=== PATIENT | male | born 2000 | race Caucasian/White ===

== ENCOUNTER 2025-06-05 16:36 | Emergency (ER) | payer OTHER, SELFPAY ==
--- OUTSIDE RECORDS SUMMARY | 2020-06-16 08:00 | XMS_ITS | Encounter Summary ---
Author Organization [facility] Healthcare Address [address] [place] [address] Care Team Providers Care Geological Engineering Teacher Name Role Phone Savi Ayala MD Primary Care Provider [phone] Encounter Details Date Type Department Care Team (Late st Contact Info) Description 06/16/2020 8:00 AM CDT Hospital Encounter [facility] Operating Room [address] [place] [address] Madi Harrington MD [address] [place] [address] Testicular pain, right Social History Tobacco Use Types Packs/Day Years Used Date Smoking Tobacco: Never Passive Smoke Exposure: Never Smokeless Tobacco: Never AUDIT-C Answer Date Recorded Q1: How often do you have a drink containing alc ohol? Monthly or less 02/15/2024 Q2: How many drinks containi ng alcohol do you have on a typical day when you are drinking? 1 or 2 02/15/2024 Q3: How often do you have si x or more drinks on one occasion? 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 Monthly or less 02/15/2024 9:07 AM THADT Aman Houser MD Q2: How many drinks containing alcohol do you have on a typical day when you are drinking? 1 or 2 02/15/2024 9:07 AM THADT Rene Houser MD Q3: How often do you have six or more drinks on one occasion? Never 02/15/2024 9:07 AM THADT Aman Houser MD documented as of this encounter Plan of Treatment Not on file documented as of this encounter Procedures Procedure Name Priority Date/Time Associated Diagnosis Comments US SCROTUM W COMPLETE DOPPLER (C) Schedule Routine, Read Routine (OP Routine) 04/25/2022 3:37 PM CDT Testicular pain, right documented in this encounter Results * US Scrotum W Complete Doppler (C) (04/25/2022 3:37 PM CDT) Anatomical Region Laterality Modality Testis N/A Ultrasound 04/28/2022 11:1 0 AM CDT Narrative 04/28/2022 11:15 AM CDT EXAM DESCRIPTION: US SCROTUM W COMPLETE DOPPLER (C) REASON FOR STUDY: RIGHT TESTICTULAR PAIN Right testicular pain intermittent x 2 years. TECHNIQUE: Gomez scale imaging of the scrotum and testes with selected color Doppler and spectral analysis. COMPARISON: None FINDINGS: RIGHT: TESTICLE: The right testicle measures 4.5 x 2.0 x 2.3 cm. The right testicle is normal in echotexture and contour with no mass. Arterial and venous flow seen. EPIDIDYMIS: The epididymis is normal in size and appearance. HYDROCELE OR VARICOCELE: Small right varicocele. HERNIA OR EXTRA-TESTICULAR MASS: There is no evidence of extratesticular mass. OTHER: No other significant finding. LEFT: TESTICLE: The left testicle measures 4.0 x 2.2 x 2.7 cm. The left testicle is normal in echotexture and contour with no mass. Arterial and venous flow seen. EPIDIDYMIS: The epididymis is normal in size and appearance. HYDROCELE OR VARICOCELE: There is no evidence of significant hydrocele or varicocele. HERNIA OR EXTRA-TESTICULAR MASS: There is no evidence of extratesticular mass. OTHER: No other significant finding. IMPRESSION: 1. Right varicocele. CT of the abdomen and pelvis with contrast may be performed for further evaluation. THIS IS AN ELECTRONICALLY VERIFIED FINAL REPORT 04/28/2022 11:15 AM - Electronically signed by Maynor Reed M.D. AG: DESIREE Report ID: [id number] Reading Location: [place] [address] Procedure Note Maynor Reed MD - 04/28/2022 EXAM DESCRIPTION: US SCROTUM W COMPLETE DOPPLER (C) REASON FOR STUDY: RIGHT TESTICTULAR PAIN Right testicular pain intermittent x 2 years. TECHNIQUE: Gomez scale imaging of the scrotum and testes with selectedcolor Doppler and spectral analysis. COMPARISON: None FINDINGS: RIGHT: TESTICLE: The right testicle measures 4.5 x 2.0 x 2.3 cm. The right testicle is normal in echotexture and contour with no mass. Arterial and venous flow seen. EPIDIDYMIS: The epididymis is normal in size and appearance. HYDROCELE OR VARICOCELE: Small right varicocele. HERNIA OR EXTRA-TESTICULAR MASS: There is no evidence of extratesticular mass. OTHER: No other significant finding. LEFT: TESTICLE: The left testicle measures 4.0 x 2.2 x 2.7 cm. The lefttesticle is normal in echotexture and contour with no mass. Arterial and venousflow seen. EPIDIDYMIS: The epididymis is normal in size and appearance. HYDROCELE OR VARICOCELE: There is no evidence of significant hydrocele or varicocele. HERNIA OR EXTRA-TESTICULAR MASS: There is no evidence of extratesticular mass. OTHER: No other significant finding. IMPRESSION: 1. Right varicocele. CT of the abdomen and pelvis with contrast may be performed for further evaluation. THIS IS AN ELECTRONICALLY VERIFIED FINAL REPORT 04/28/2022 11:15 AM - Electronically signed by Maynor Reed M.D. AG: DESIREE Report ID: [id number] Reading Location: [place] [address] [facility] Nissa Franz MD [facility] PROCEDURES Final Result documented in this encounter Visit Diagnoses Diagnosis Testicular pain, right Unspecified disorder of male genital organs documented in this encounter Admitting Diagnoses Diagnosis Eosinophilic esophagitis documented in this encounter Historical Medications * This list may reflect changes made after this encounter. acetaminophen-cod eine (TYLENOL with CODEINE #3) 300-30 mg per tablet TK 1 T PO Q 6 H PRN PO 03/31/2020 06/02/2021 ibuprofen (ADVIL,MOTRIN) 600 mg tablet 03/31/2020 06/02/2021 chlorhexidine (PERIDEX) 0.12 % solution SWISH AND SPIT 10-15 ML PO BID FOR 7 DAYS. 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
[2025-06-05 16:41] VITALS: BP 139/66; PULSE 54; RESP 16; TEMP 37.1; O2SAT 100
--- OUTSIDE RECORDS SUMMARY | 2025-06-05 17:31 | XMS_ITS | Encounter Summary ---
Author Organization [facility] Healthcare Address [address] [place] [address] Care Team Providers Care Manager Real Estate Name Role Phone Alison Shelley MD Unavailable [phone] Aman Houser MD Primary Care Provider Encounter Details Date Type Department Care Team (Latest Contact Info) Description 05/23/2025 Results Follow-Up [facility] Primary Care at [facility] - [address] [place] [id number] Fidelina Mejia, SHELLACKER [address] [address] Thyroid Function [place], CBC with auto differential, Comprehensive metabolic panel, Additional followed-up results: 2 Social History Tobacco Use Types Packs/Day Years [...] on file 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
--- OUTSIDE RECORDS SUMMARY | 2025-06-05 17:31 | XMS_ITS | Clinical Summary ---
Author Organization [facility] [employer] Address [address] [place] [address] Care Team Providers Care Stock Blender Name Role Phone Savi Ayala MD Primary Care Provider [phone] Source Comments [facility],non-owned Affiliates and Associated Physician Practices is amultiple site organization consisting of ambulatory clinics and hospital sitesin [place], [place], [place] and [place]. This disclosure is being madepursuant to the Care Everywhere program and may not contain all information available regarding this patient. Last updated 18.[facility] [employer] Allergies Active Allergy Reactions Criticality Noted Date Comments Penicillins Urticaria Medium 07/22/2016 Suprax Urticaria Medium 07/22/2016 Medications * Be aware that medications may not be up to date on this document. Alwaysverify current medications with the patient. 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 Gender Identity Not on file Sexual Orientation Not on file Last Filed Vital Signs Vital Sign Reading Time Taken Comments Blood Pressure 128/72 02/13/2019 12:04 PM CDT Pulse 79 02/13/2019 12:04 PM CDT Temperature 36.7 C (98.1 F) 02/13/2019 12:04 PM CDT Respiratory Rate 16 02/13/2019 12:04 PM CDT Oxygen Saturation 98% 02/13/2019 12:04 PM CDT Inhaled Oxygen Concentration - - Weight 77.6 kg (171 lb) 02/13/2019 12:04 PM CDT Height 186.7 cm (6' 1.5) 02/13/2019 12:04 PM CD T Body Mass Index 22.25 02/13/2019 12:04 PM CDT Plan of Treatment Health Maintenance Due Date Last Done Comments HIV SCREENING 2017 HPV VACCINE (1 - Male 3-dose series) 2017 MENINGOCOCCAL (Group B) VACC INE SHARED DECISION-MAKING (1 of 2 - Standard) 2018 HEPATITIS C SCREENING 03/24/2020 DTAP/TDAP/TD VACCINES (1 - Tdap) 2021 HEPATITIS B VACCINE (1 of 3 - 19+ 3-dose series) 2021 COVID-19 VACCINE (1 - 2023-2 5 season) 2024 DEPRESSION SCREENING 10/09/2024 INFLUENZA VACCINE (#1) 2025 ZOSTER VACCINE (1 of 2) 2052 HIB VACCINE Aged Out No longer eligi ble based on patient's age to complete this topic MENINGOCOCCAL GROUPS A/C/Y/W VACCINE Aged Out No longer eligible b ased on patient's age to complete this topic PNEUMOCOCCAL VACCINE Aged Out No long er eligible based on patient's age to complete this topic Insurance [facility] Care Teams Stock Blender Relationship Specialty Start Date End Date Savi Ayala MD [address] [place] [id number] [facility] - General 02/14/12
--- OUTSIDE RECORDS SUMMARY | 2025-06-05 17:31 | XMS_ITS | Clinical Summary ---
Author Organization [facility] Address [address] [place] [address] Care Team Providers Care Engraver Hand Soft Metals Name Role Phone Alison Shelley MD Unavailable [phone] Aman Houser MD Primary Care Provider Allergies Active Allergy Reactions Criticality Noted Date Comments Cefixime Hives Medium 07/22/2016 Penicillins Hives Medium Medications sildenafiL, pulm.hypertension , (REVATIO) 20 mg tablet Take 1 tablet (20 mg total) by mouth as needed (ED) Take 1 tablets by mouth as needed (take on empty stomach) 30 tablet 11 4 Active lansoprazole (PREVACID) 30 mg capsuleIndication s:Eosinophilic esophagitis TAKE 1 CAPSULE(30 MG) BY MOUTH DAILY 30 capsule 5 4 Active budesonide-formot Sophia (Breyna) 160-4.5 mcg/actuation inhaler Inhale 2 puffs 2 (two) times a day Rinse mouth with water after use. Do not swallow. 3 each 4 5 Active escitalopram (LEXAPRO) 10 mg tabletIndications :Mild depression Take 1 tablet (10 mg total) by mouth daily 90 tablet 4 5 Active albuterol (PROAIR RESPICLICK) 90 mcg/actuation inhalerIndication s:Mild persistent asthma without complication Inhale 2 puffs every 6 (six) hours as needed for wheezing 1 each 11 5 Active Active Problems Problem Noted Date Diagnosed Date Attention deficit hyperactivity disorder (ADHD) 04/10/2024 Assessment & Plan (04/10/2024 1:09 PM CDT): Stable, Not currently on medications Prior outside medical rec reviewed -Continue utilizing IEP for scholastic task. Will supply letter for accommodations. Mild persistent asthma without complication 06/2024 Assessment & Plan (02/27/2025 9:17 AM CDT): Controlled, continue SMART therapy with Breyna and Albuterol prn Assessment & Plan (02/15/2024 9:04 AM CDT): Mild, intermittent He uses Albuterol, Dulera prn only Mild depression 02/15/2024 Assessment & Plan (02/27/2025 9:18 AM CDT): Having increased stress and symptoms Increase Lexapro to 10mg Assessment & Plan (02/15/2024 9:09 AM CDT): Well controlled currently Previously responded to Lexapro but had SE. Would consider low dose if recurs External hemorrhoid 02/15/2024 Assessment & Plan (02/15/2024 9:12 AM CDT): Mild, recurrent Discussed dietary modifications He is controlled with OTC topical Eosinophilic esophagitis 09/13/2018 Overview (09/13/2018): Added automatically from request for surgery [id number] Assessment & Plan (02/27/2025 9:19 AM CDT): Controlled, continue Prevacid Assessment & Plan (02/15/2024 9:01 AM CDT): Chronic, controlled on PPI Esophageal dysphagia 08/24/2018 Overview (08/24/2018): Added automatically from request for surgery [id number] Resolved Problems Problem Noted Date Diagnosed Date Resolved Date Closed fracture of forearm 02/12/2013 0 02/15/2024 Encounters Date Type Department Care Team Description 05/23/2025 Results Follow-Up [facility] - [address] [place] [phone] Fidelina Mejia, CONSTRUCTION SAFETY MANAGER Thyroid Function [place], CBC with auto differential, Comprehensive metabolic panel, Additional followed-up results: 2 05/22/2025 9:30 AM CDT Lab [address] [phone] Preventative health care 05/22/2025 9:00 AM CDT Office Visit [facility] at [facility] - [address] [place] [phone] Fidelina Mejia, CONSTRUCTION SAFETY MANAGER Axillary mass, right (Primary Dx); Preventative health care 05/08/2025 2:15 PM CDT Office Visit [facility] Care at [address] [phone] Suri Ho, CONSTRUCTION SAFETY MANAGER Mass of right axilla (Primary Dx) from Last 3 Months Immunizations Immunization Administration Dates Next Due DTaP 5 Pertussis 04/03/2007, 3,2002,07/30,2002 HPV, Quadrivalent 06/05/2013 HPV9 05/16/2016 Hep A, Pediatric 04/03/2007,09/13/2005 Hep B, Adolescent or Pediatric 2002,2001,2002 Hib (PRP-T) 09/09/2003, 3,2002,05/30 IPV 04/03/2007, 3,2002,05/30 Influenza, Live, Intranasal, Quadrivalent 07/29/2015 Influenza, Quadrivalent, Marilynn l Culture-based MDCK, Preservative Free, Antibiotic Free, Intramuscular 08/21/2023,07/23/2018 Influenza, Quadrivalent, Spl it, Preservative Free, Intramuscular 09/02/2022,08/03/2021,08/24/2020,07/02,09/19/2016 Influenza, Trivalent, Cell Culture-based MDCK, Preservative Free, Antibiotic Free, Intramuscular 09/02/2024 Influenza, Trivalent, IM (MDV) 10/08/2013 MMR 04/03/2007,09/09/2003 Meningococcal B, Recombinant (Trumenba) 02/21/2020 Meningococcal B, unspecified 07/02/2019 Meningococcal Conjugate (Menveo) 06/05/2013 Meningococcal MCV4P (Menactra) 07/04/2019 Pfizer SARS-CoV-2 Monovalent Vaccination (12+ Yrs) PURPLE 02/05/2021,01/08/2021 Pneumococcal Conjugate PCV 13 04/22/2003 ,2002,2002,05/30 Tdap 02/15/2024,06/05/2013 Varicella 04/03/2007,04/22/2003 Surgical History Surgery Date Site/Laterality Comments TYMPANOSTOMY TUBE PLACEMENT UPPER GASTROINTESTINAL ENDOSCOPY Medical History Medical History Date Comments ADHD (attention deficit hype ractivity disorder) Dysphagia Fracture(arm) Delayed emergence from anesthesia(slow to emerge with ketamine used to reduce Forearm fracture) Esophageal dysphagia 08/24/2018 Added autom atically from request for surgery [id number] Eosinophilic esophagitis 09/13/2018 Added a utomatically from request for surgery [id number] Closed fracture of forearm 02/12/2013 Covid-19 Pfizer 01/08/2021, 02/05/2021 Asthma January2021 Family History Medical History Relation Name Comments Hypertension Father Breast cancer Mother Citlaly tracey Bronchospasm after GA and required intubation Mother Citlaly tracey Cancer Mother Citlaly tracey Depression Mother Citlaly tracey Celiac disease Neg Hx Crohn's disease Neg Hx Irritable bowel syndrome Neg Hx Relation Name Status Comments Father Mother Citlaly tracey Social History Tobacco Use Types Packs/Day Years Used Date Smoking Tobacco: Never Passive Smoke Exposure: Never Smokeless Tobacco: Never Tobacco Cessation:Counseling Given: No AUDIT-C Answer Date Recorded Q1: How often [...] on file Legal Sex Male 4:01 AM PROSTHETICS ASSISTANT Gender Identity Male 06/03/2024 1:46 PM CDT Sexual Orientation Choose not to disclose 2023 1:46 PM CDT Obstetrics History Last Filed Vital Signs Vital Sign Reading Time Taken Comments Blood Pressure 110/72 05/22/2025 8:47 AM CDT Pulse 56 05/22/2025 8:47 AM CDT Temperature 36.8 C (98.2 F) 05/22/2025 8:47 AM CDT Respiratory Rate 18 05/22/2025 8:47 AM CDT Oxygen Saturation 99% 05/22/2025 8:47 AM CDT Inhaled Oxygen Concentration - - Weight 73.9 kg (163 lb) 05/22/2025 8:47 AM CDT Height 182.9 cm (6') 05/22/2025 8:47 AM CDT Body Mass Index 22.11 05/22/2025 8:47 AM CDT Plan of Treatment Health Maintenance Due Date Last Done Comments Pneumococcal vaccine <65 (1 of 1 - PPSV23, PCV20, or PCV21) 2008 04/22/2003, 2002, 2002, Additional history exists Influenza Vaccine (#1) 2025 , 08/21/2023, 09/02/2022, Additional history exists Depression Screening 02/27/2026 02/27/2025, 04/10/2024, 02/15/2024 Regular Well Visit/Exam 18-64 02/27/2026 02/27/2025, 02/15/2024 DTaP/Tdap/Td Vaccine (8 - Td or Tdap) 02/14/2034 02/15/2024, 06/05/2013, 04/03/2007, Additional history exists Hepatitis B Screening Completed 2002 , 2002, 2002 Varicella Vaccines Completed 04/03/2007, 04/22/2003 HPV Vaccines Completed 05/16/2016, 06/05/2013 Meningococcal B Vaccine Discontinued 02/21/2020, 07/02 Covid-19 Vaccine Completed 09/02/2024, , 07/15/2022, Additional history exists Hepatitis C Screening Discontinued Procedures Procedure Name Priority Date/Time Associated Diagnosis Comments EGFR Routine 05/22/2025 9:21 AM CDT Preventative health care DIFFERENTIAL AUTO Routine 05/22/2025 9:2 1 AM CDT Preventative health care COMPREHENSIVE METABOLIC PANEL Routine 05/22/2025 9:21 AM CDT Preventative health care CBC WITH AUTO DIFFERENTIAL Routine 05/22/2025 9:21 AM CDT Preventative health care THYROID FUNCTION CASCADE Routine 05/22/2025 9:21 AM CDT Preventative health care from Last 3 Months Results * eGFR (05/22/2025 9:21 AM CDT) eGFR >90 >=60 mL/min/1. 73 m2 Comment: Interpretive Data Reference Interval Normal >/= 90 mL/min/1.73m2 Mildly decreased* 60 - 89 mL/min/1.73m2 Mildly to moderately decreased 45 - 59 mL/min/1.73m2 Moderately to severely decreased 30 - 44 mL/min/1.73m2 Severely decreased 15 - 29 mL/min/1.73m2 Kidney Failure < 15 mL/min/1.73m2 *Relative to young adult level Estimated glomerular filtration rate is determined by the 2020 CKD-EPI equation recommended by the National Kidney Foundation (A Unifying Approach to GFR Estimation: Recommendations of the NKF-ASK Task Force on Reassessing the Inclusion of Race in Diagnosing Kidney Disease, JASN 2020). The CKD-EPI equation should not be used for patients with unstable renal function and has not been validated in children and those over 70. Current interpretive data was last reviewed 2021. Testing performed by: [facility], [facility] [address], [place] [address] Blood 05/22/2025 9:21 AM CDT 05/22/2025 9:21 AM CDT Fidelina Mejia NP LAB BLOOD ORDERABLES Final R esult [facility] [address] [place] [address] * Differential, auto (05/22/2025 9:21 AM CDT) Neutrophil abs 1.69 1.50 - 6.50 K/cumm Comment:Testing performed by : [facility], [facility] [place] [place] [address] Imm gran abs 0.00 0.00 - 0.10 K/cumm [facility] Comment:Testing performed by : [facility] [place] [address] Lymphocyte abs 2.06 0.80 - 3.30 K/cumm CERNER Comment:Testing performed by : [facility], [facility] [place] [address] Monocyte abs 0.44 0.20 - 0.80 K/cumm CERNER Comment:Testing performed by : [facility], [facility] [place] [address] Eosinophil abs 0.36 0.00 - 0.50 K/cumm CERNER Comment:Testing performed by : [facility] [place] [address] Basophil abs 0.03 0.00 - 0.10 K/cumm CERNER Comment:Testing performed by : [facility], [address] [place], [place] [address] [place] [address] Neutrophil pct 36.8 % CERNER Comment: Interpretive Data Percent cell count reference ranges are not reported, since discordance with absolute values may lead to misinterpretation of CBC data. Current Interpretive Data was last revised on 2018. Testing performed by: [facility], [facility] [place] [address] Imm gran pct 0.0 % CERNER Comment: Interpretive Data Percent cell count reference ranges are not reported, since discordance with absolute values may lead to misinterpretation of CBC data. Current Interpretive Data was last revised on 2018. Testing performed by: [facility], [address] [address] Lymphocyte pct 45.0 % [facility] Comment: Interpretive Data Percent cell count reference ranges are not reported, since discordance with absolute values may lead to misinterpretation of CBC data. Current Interpretive Data was last revised on 2018. Testing performed by: [facility], [address] [address] Monocyte pct 9.6 % [facility] Comment: Interpretive Data Percent cell count reference ranges are not reported, since discordance with absolute values may lead to misinterpretation of CBC data. Current Interpretive Data was last revised on 2018. Testing performed by: [facility], [address] [address] Eosinophil pct 7.9 % [facility] Comment: Interpretive Data Percent cell count reference ranges are not reported, since discordance with absolute values may lead to misinterpretation of CBC data. Current Interpretive Data was last revised on 2018. Testing performed by: [facility], [address] [address] Basophil pct 0.7 % [facility] Comment: Interpretive Data Percent cell count reference ranges are not reported, since discordance with absolute values may lead to misinterpretation of CBC data. Current Interpretive Data was last revised on 2018. Testing performed [facility]: [facility] [address], [place] [address] Blood 05/22/2025 9:21 AM CDT 05/22/2025 9:21 AM CDT us Fidelina Mejia CONSTRUCTION SAFETY MANAGER LAB BLOOD ORDERABLES Final R esult [facility] [address] [place] [address] * Thyroid Function [place] (05/22/2025 9:21 AM CDT) TSH 0.80 0.30 - 4.20 mcIUnit/mL Comment:Testing performed [facility] : [facility] [address], [place] [address] Blood 05/22/2025 9:21 AM CDT 05/22/2025 9:21 AM CDT us Fidelina Mejia CONSTRUCTION SAFETY MANAGER LAB BLOOD ORDERABLES Final R esult [facility] [address] [place] [address] * CBC with auto differential (05/22/2025 9:21 AM CDT) WBC 4.58 3.80 - 9.90 K/cumm Comment:Testing performed [facility] : [facility] [address], [place] [address] Hgb 14.3 13.0 - 17.5 g/dL CERNER CH Comment:Testing performed [facility] : [facility], [place] [address] Hct 42.2 38.9 - 50.3 % CERNER CH Comment:Testing performed by : [facility] [address], [place] [address] Plt 189 150 - 400 K/cumm CERNER CH Comment:Testing performed by : [facility] [address], [place] [address] MPV 10.6 9.1 - 12.3 fL CERN[facility] CH Comment:Testing performed by : [facility] [address], [place] [address] RBC 4.85 4.30 - 5.80 M/cumm C[facility] CH Comment:Testing performed by : [facility], [place] [address] MCV 87.0 81.3 - 96.4 fL CERNER CH Comment:Testing performed by : [facility], [place] [address] MCH 29.5 27.1 - 33.3 pg CERNER CH Comment:Testing performed by : [facility], [place] [address] MCHC 33.9 32.3 - 35.7 g/dL CERNER CH Comment:Testing performed by : [facility], [place] [address] RDW CV 12.3 11.1 - 14.9 % CERNER CH Comment:Testing performed by : [facility] [place] [address] RDW SD 39.1 35.7 - 48.1 fL CERNER CH Comment:Testing performed by : [facility], [place] [facility]31 NRBC abs 0.00 0.00 - 0.01 K/cumm CERNER CH Comment:Testing performed [facility] : [facility] [place] [address] Blood 05/22/2025 9:21 AM CDT 05/22/2025 9:21 AM CDT Fidelina Mejia NP LAB BLOOD ORDERABLES Final R esult [facility] [address] Department [place] [address] * Comprehensive metabolic panel (05/22/2025 9:21 AM CDT) Sodium 138 135 - 145 mmol/L Comment:Testing performed by : [facility] [place] [id number] Potassium, pl 4.1 3.3 - 4.9 mmol/L CERNER CH Comment:Testing performed [facility] : [facility] [place] [facility]31 Chloride 102 97 - 110 mmol/L CERNER CH Comment:Testing performed by : [facility], [place] [facility]31 CO2 24 22 - 32 mmol/L CERN[facility] CH Comment:Testing performed [facility] : [facility] [place] [facility] Anion gap 12 2 - 15 mmol/L CERN[facility] CH Comment:Testing performed [facility] : [facility] [place] [address] BUN 14 6 - 25 mg/dL CERNER CH Comment:Testing performed by : [facility] [place], [facility]31 Creatinine 1.09 0.80 - 1.30 mg/dL CERNER CH Comment:Testing performed [facility] : [facility] [place] [address] Glucose 95 70 - 199 mg/dL CERNER CH Comment: Interpretive Data Fasting glucose >/= 126 mg/dl is diagnostic for diabetes. Fasting is defined as no caloric intake for at least 8 hours. Fasting glucose between 100 mg/dl to 125 mg/dl is diagnostic of prediabetes. In a patient with classic symptoms of hyperglycemia or hyperglycemic crisis, a random glucose >/= 200 mg/dl is diagnostic for diabetes. In the absence of unequivocal hyperglycemia, results should be confirmed by repeat testing. The classification and Diagnosis of Diabetes Diabetes Care 2021; 46: S19-S40. Current interpretive data was last revised 2022. Testing performed [facility]: [facility], [place] [address] Calcium 9.6 8.5 - 10.3 mg/dL CERNER CH Comment:Testing performed by : [facility] [address] [place] [address] Bilirubin, total 0.3 0.1 - 1.2 mg/dL CERNER CH Comment:Testing performed by : [facility], [place] [address] Protein, pl 7.6 6.5 - 8.5 g/dL CERNER CH Comment:Testing performed by : [facility], [place] [address] Albumin 4.7 3.5 - 5.0 g/dL CERNER CH Comment:Testing performed by : [facility] [address] [place] [address] Alk phos 89 40 - 130 Units/L CERNER CH Comment:Testing performed by : [facility] [address], [place] [address] ALT 21 7 - 55 Units/L CERNER CH Comment:Testing performed by : [facility], [place] [address] AST 28 10 - 50 Units/L CERNER CH Comment:Testing performed by : [facility] [address] [place] [address] [address] Blood 05/22/2025 9:21 AM CDT 05/22/2025 9:21 AM CDT us Fidelina Mejia NP LAB BLOOD ORDERABLES Final R esult [facility] [address] Department of Laboratories [place] [id number] from Last 3 Months Insurance [id number] [place] [address] [phone] [place] [address] [facility] Advance Directives For more information, please contact: [phone] Documents on File Type Date Recorded 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
--- NOTE | 2025-06-05 17:54 | ED.WOUNDLAC ---
HPI - Wound/Laceration General Chief Complaint: Wound/Laceration Stated Complaint: head lac Time Seen by Provider: 06/05/25 17:12 Source: patient Mode of arrival: ambulatory Limitations: no limitations History of Present Illness HPI narrative: This is a 25-year-old male who presents the emergency department for laceration to his scalp. Reports he was bending down and stood back up. He hit his head on the corner of the a TV. He did not lose consciousness. He is up-to-date tetanus vaccination. Denies vision changes, vomiting, numbness weakness. Related Data Allergies Allergy/AdvReac Type Severity Reaction Status Date / Time Penicillins Allergy Intermediate Hives Verified 06/05/25 17:49 suprex Allergy Intermediate Hives Uncoded 06/05/25 17:49 Review of Systems Review of Systems: All systems reviewed & are unremarkable except as noted in HPI and below PMFSH Past Medical History Medical History (Updated 06/05/25 @ 17:59 by Joselyn sOhea PA-C) Asthma Exam Narrative: GENERAL: Well-appearing, well-nourished, and in no acute distress. HEAD: Normocephalic. 2cm linear laceration to the left parietal scalp EYES: PERRLA and EOMI. ENT: Nares clear, no rhinorrhea or epistaxis. Mucous membranes moist. Oropharynx without tonsillar hypertrophy exudate or other lesions. Bilateral TMs pearly schmidt non-bulging NECK: Supple. No adenopathy or masses. CHEST: Clear to auscultation. No respiratory distress. No wheezes rales or rhonchi HEART: Regular rate and rhythm. No murmur heard. Normal peripheral pulses. EXTREMITIES: Normal range of motion. No edema. SKIN: Warm, dry, no rash. NEURO: No focal deficits. Alert and oriented x3. Cranial nerves 2-12 grossly intact PSYCH: Normal mood and affect Course Vital Signs Vital signs: Vital Signs Temperature 98.7 F 06/05/25 16:41 Pulse Rate 54 L 06/05/25 16:41 Respiratory Rate 16 06/05/25 16:41 Blood Pressure 139/66 06/05/25 16:41 Pulse Oximetry 100 06/05/25 16:41 Oxygen Delivery Room Air 06/05/25 16:41 Temperature 98.7 F 06/05/25 16:41 Pulse Rate 54 L 06/05/25 16:41 Respiratory Rate 16 06/05/25 16:41 Blood Pressure 139/66 06/05/25 16:41 Pulse Oximetry 100 06/05/25 16:41 Oxygen Delivery Room Air 06/05/25 16:41 Procedures Laceration Laceration 1: Date: 06/05/25 Time: 18:01 Site: scalp Size (cm): 2 Description: linear Depth: simple, single layer Local Anesthetic: lidocaine 1% and with epi Amount of anesthesia used (mL): 2 Pre-repair: wound explored and irrigated ====== Skin Level ====== Skin layer closed with: domenico Number of sutures: 3 ====== Subcutaneous Layer ====== ====== Muscle Layer ====== ====== Tendon Layer ====== MDM - Wound/Laceration MDM Narrative Medical decision making narrative: Patient presents the emergency department for laceration to his scalp. This was irrigated and stapled. He is up-to-date on tetanus vaccination. He is to follow up primary provider. He given warnings to return the ER Differential Diagnosis Differential diagnosis: Likely laceration, abrasion and avulsion of skin Critical Care Time Critical Care Time Critical Care Time: No Discharge Plan Discharge Clinical Impression: Laceration Patient Disposition: Home Condition: Stable Instructions: Staple Care (ED) Additional Instructions: Return to the emergency department if you experience fever, redness or swelling of your wound, abnormal drainage from your wound, or any other symptoms that are concerning to you. You may let the water run over the wound in the shower. Avoid harsh scrubbing to the area. Follow-up with your primary care doctor for staple removal in 7-10 days. Patient Language: Kinyarwanda Follow-up/Referrals: PHYSICIAN NOT ON STAFF,NONSTAFF [Primary Care Provider]
[2025-06-05] MEDS: Please add drug allergy info to patient profile. 1 EACH XX (17:59)
[2025-06-05] MEDS: LIDO 1%/EPINEPHRINE 1:100,000 20 ML VIAL 10 ML INFILTRATE (17:59)
[2025-06-05 18:08] VITALS: BP 117/76; PULSE 76; RESP 16; TEMP 37.1; O2SAT 98
== END 2025-06-05 18:09 | disposition home or self-care (01) ==
PROVIDERS: Emergency Provider Physician Assistant
DX: S01.01XA Laceration without foreign body of scalp, initial encounter (principal); J45.909 Unspecified asthma, uncomplicated; W22.8XXA Striking against or struck by other objects, initial encounter
CPT/HCPCS: 12001; 99282; J2004